=== PATIENT | male | born 1990 | race Caucasian/White ===

== ENCOUNTER → 2025-02-15 09:43 | Outpatient (REF) | payer OTHER, SELFPAY | LOC: DHSLP 09:43 | PROVIDERS: ATTENDING PHYSICIAN Internal Medicine; FAMILY PHYSICIAN Physician Assistant | DX: G47.30 Sleep apnea, unspecified (principal); R06.83 Snoring; G47.00 Insomnia, unspecified | CPT/HCPCS: 95800 ==